=== PATIENT | female | born 1990 | race Caucasian/White ===

== ENCOUNTER 2016-04-19 09:28 | Emergency (ER) | payer BC ==
[~2016-04-19] VITALS: Ht 177.8 cm; Wt 118.3 kg
[~2016-04-19 09:28] MED LIST: ALBU18002; ASPI81TA28 PO; BENZ100C6 PO; BUTA1CAP20; FOLI1TAB7 PO; INDO-22 PO; THY/30 PO; VITB2100; vit D
[2016-04-19 09:32] VITALS: TEMP 36.5; Ht 177.8 cm; Wt 118.3 kg
[2016-04-19] MEDS ORDERED: CHOL400T PO (09:51)
[2016-04-19] MEDS ORDERED: ESTRADIOL 2MG PO (09:55)
[2016-04-19] MEDS ORDERED: KETOROLAC TROMETHAMINE 30 MG/ML VIAL IV STA (10:49)
[2016-04-19 11:13] LABS: BASO % 0.3 %; BASO ABS # 0.02 K/uL (0-0.2); COMPLETE YES; HEMATOCRIT 39.5 % (37-47); IG% 0.2 %; LYMPH % 36.1 %; LYMPH ABS # 2.15 K/uL (1.2-3.4); MEAN CELL VOLUME 82.6 fL (80-100); MEAN CORPUSCULAR HEMOGLOBIN 27.2 pg (25-34); MEAN CORPUSCULAR HGB CONC 32.9 g/dl (32-36); MEAN PLATELET VOLUME 9.5 fL (7.4-10.4); MONO % 6.7 %; NEUT % 54.7 %; PLATELET COUNT 257 K/uL (130-400); RED BLOOD COUNT 4.78 M/uL (4.2-5.4); WHITE BLOOD COUNT 5.95 K/uL (4.8-10.8)
[2016-04-19 11:19] LABS: PARTIAL THROMBOPLASTIN RATIO 1.1; PROTHROMBIN TIME (PATIENT) 11.2 SECONDS (9.0-12.0)
[2016-04-19 11:28] LABS: BUN/CREATININE RATIO 8.9 (10-20); CALCIUM 9.1 mg/dl (8.5-10.1); CREATININE 0.82 mg/dl (0.60-1.20); POTASSIUM 3.7 mmol/L (3.5-5.1)
[2016-04-19 11:31] LABS: ALB/GLOB RATIO 1.1 (0.9-2)
--- NOTE | 2016-04-19 11:48 | DIAGNOSTIC IMAGING REPORT ---
PELVIS 1 OR 2 VIEW ROUTINE CLINICAL HISTORY: Fall. Right hip and thigh pain. COMPARISON STUDY: No previous studies for comparison. FINDINGS: The sacroiliac joints and symphysis pubis are intact. There is apparent sclerosis along the left sacroiliac joint with mild osteophytosis. No acute fracture within the pelvis or hips is identified. IMPRESSION: No acute fracture within the pelvis or hips. Electronically signed by: Nathan Phillips M.D. 04/19/2016 11:46 AM Dictated Date/Time: 04/19/2016 11:45 AM
--- NOTE | 2016-04-19 11:49 | DIAGNOSTIC IMAGING REPORT ---
RIGHT FEMUR 2 VIEWS ROUTINE CLINICAL HISTORY: Right thigh pain following fall. COMPARISON: None FINDINGS: Alignment of the right hip and right knee is anatomic. No acute fracture of the right femur is identified. IMPRESSION: No acute fracture of the right femur. Electronically signed by: Nathan Phillips M.D. 04/19/2016 11:47 AM Dictated Date/Time: 04/19/2016 11:47 AM
--- NOTE | 2016-04-19 12:43 | DIAGNOSTIC IMAGING REPORT ---
ULTRASOUND RIGHT LOWER EXTREMITY VENOUS CLINICAL HISTORY: Right thigh pain. COMPARISON STUDY: No priors. TECHNIQUE: Real-time, grayscale, and color Doppler sonography of the deep veins of the right lower extremity was performed from the inguinal crease to the calf. Compression and augmentation were utilized. FINDINGS: There is no sonographic evidence of deep venous thrombosis identified in the right lower extremity. The common femoral, superficial femoral, and popliteal veins are patent and normally compressible. The greater saphenous vein and the profunda femoris vein at the junction with the common femoral vein are clear. The visualized calf veins are patent. No abnormality is identified at the site of interest in the thigh as identified by the patient. IMPRESSION: There is no sonographic evidence of deep venous thrombosis identified in the right lower extremity. Electronically signed by: Ej Fitzpatrick M.D. 04/19/2016 12:41 PM Dictated Date/Time: 04/19/2016 12:40 PM
[2016-04-19 12:44] LABS: PREG INTERNAL NEGATIVE QC NEG CLEAR BACKGROUND; PREG INTERNAL POSITIVE QC POS CONTROL LINE
--- NOTE | 2016-04-19 13:13 | EMERGENCY ROOM VISIT NOTE ---
ED Visit Note First contact with patient: 10:18 CHIEF COMPLAINT: Right thigh pain acutely this morning HISTORY OF PRESENT ILLNESS: Patient is a 25-year-old white female who presents to the emergency department for evaluation of right thigh pain that began acutely today. She states that it woke her from sleep around 6:30 this morning. She describes a burning pain in the right thigh, that does not radiate to the buttock or the lower leg. She states that she was "screaming in pain." She states that it has subsided slightly now, and was rated an 8/10. She states that it made it difficult for her to walk. She applied heat, but did not take any medications. She does report a history of migraines, trigeminal neuralgia and peripheral neuropathy. She has had problems with numbness in her arms and legs since she was 16. She has been evaluated in the past, with CT scans, MRIs and EMGs. She actually reports that she is scheduled for new upper and lower extremity EMGs she believes next week. She denies any low back pain. No bowel or bladder incontinence or urinary symptoms. She reports that she slipped on ice and fell 3 days ago, but landed on her left side and did not relate any injuries regarding the fall. The patient does report she is on estrogen for infertility. She denies any leg swelling. She does not have any symptoms in the left leg. She denies any chest pain, palpitations or shortness of breath. She has not taken any estrogen for about 5 days since she started her menstrual cycle. She does have a history of hypothyroidism. She states that it was checked about 3 months ago and was normal, but they did change her medications slightly. She is scheduled to have them rechecked. She denies any associated headache. No difficulty with balance , speech or coordination. No facial droop or numbness. REVIEW OF SYSTEMS: Review of systems as per HPI. All other systems reviewed were negative. 10 systems reviewed.. PMH: Electronic medical records are reviewed and summarized as above/below. See Problem List. SOCIAL HISTORY: Patient lives at home. Employed. Smoker. PHYSICAL EXAM: Vital Signs: Reviewed Nurse's notes. CONSTITUTIONAL: Patient is an obese 25-year-old white female who was awake and alert and laying on her left side on the gurney sleeping when I enter the exam room. Her is at the bedside. HEENT: Normocephalic, atraumatic. Pupils equal, round, reactive to light and accommodation. EOMs intact without nystagmus. Sclera are anicteric. Tympanic membranes intact, with normal landmarks. External canals are clear. Oral and nasopharynx are clear. Mucous membranes are moist. HEART: Regular rate and rhythm without murmurs, ectopy, gallops, or rubs. LUNGS: Clear to auscultation and breath sounds equal, no wheezes, rales, or rhonchi. ABDOMEN: Soft, non-tender, no hepatosplenomegaly, or masses. EXTREMITIES: Examination of the right leg does not note any erythema, cyanosis , edema, joint tenderness or effusion. Pulses equal bilaterally. There is no evidence for trauma including ecchymosis or abrasions. There is no reproducible tenderness to palpation, including over the right greater trochanter or the groin. Knee is nontender to palpation. No joint effusion is appreciated. She has full hip, knee, foot and ankle range of motion. The calves are soft and nontender. No pitting edema. No palpable cords. No increased warmth, induration or cellulitic changes noted. There is no lymphangitic streaking. NEUROLOGICAL: Alert, oriented, and cooperative. Cranial nerves, sensation and strength grossly intact. DTRs are equal and symmetrical bilaterally in the lower extremities. EMERGENCY DEPARTMENT COURSE: The patient was seen and evaluated as above. IV access was obtained. CBC, CMP and coags were drawn. She was medicated with Toradol 30 mg IV for discomfort. X-rays of the AP pelvis and right femur were obtained and were negative for acute fracture or bony abnormality. Ultrasound of the right lower extremity was performed and was negative for DVT. The patient was reassessed. She was again sleeping on the gurney in no acute distress. Laboratory and diagnostic imaging studies were reviewed with her. Certainly given her estrogen therapy, concern for DVT was expressed, but this was negative by ultrasound. She does not have any direct trauma to that area, and x-rays are unremarkable. Skin is intact without any rashes, lesions, no evidence for cellulitis or abscess. No evidence for superficial thrombophlebitis. She does have a long-standing history of neuropathy and is under the care of neurology for this, I did discuss with her possibly her pain is related to her neuropathy. Differential diagnoses also considered included lumbar radiculopathy. She was encouraged to follow-up with her providers as she has scheduled for further care and management of her symptoms. She rated her discomfort a 0/10 at discharge. ULTRASOUND RIGHT LOWER EXTREMITY VENOUS CLINICAL HISTORY: Right thigh pain. COMPARISON STUDY: No priors. TECHNIQUE: Real-time, grayscale, and color Doppler sonography of the deep veins of the right lower extremity was performed from the inguinal crease to the calf. Compression and augmentation were utilized. FINDINGS: There is no sonographic evidence of deep venous thrombosis identified in the right lower extremity. The common femoral, superficial femoral, and popliteal veins are patent and normally compressible. The greater saphenous vein and the profunda femoris vein at the junction with the common femoral vein are clear. The visualized calf veins are patent. No abnormality is identified at the site of interest in the thigh as identified by the patient. IMPRESSION: There is no sonographic evidence of deep venous thrombosis identified in the right lower extremity. PELVIS 1 OR 2 VIEW ROUTINE CLINICAL HISTORY: Fall. Right hip and thigh pain. COMPARISON STUDY: No previous studies for comparison. FINDINGS: The sacroiliac joints and symphysis pubis are intact. There is apparent sclerosis along the left sacroiliac joint with mild osteophytosis. No acute fracture within the pelvis or hips is identified. IMPRESSION: No acute fracture within the pelvis or hips. RIGHT FEMUR 2 VIEWS ROUTINE CLINICAL HISTORY: Right thigh pain following fall. COMPARISON: None FINDINGS: Alignment of the right hip and right knee is anatomic. No acute fracture of the right femur is identified. IMPRESSION: No acute fracture of the right femur. Problem List Medical Problems: (1) Asthma Status: Chronic (2) Contact dermatitis Status: Resolved (3) Hypothyroidism, Unspecified Status: Chronic (4) Migraine Status: Chronic (5) Syncope Status: Resolved (6) Trigeminal Neuralgia Status: Chronic (7) Von Willebrand disease Status: Chronic (8) Work related injury Status: Resolved Surgical Problems: (1) Hx of hand surgery Status: Resolved (2) S/P dilatation and curettage Status: Resolved (3) S/P T&A (status post tonsillectomy and adenoidectomy) Status: Resolved (4) [place] teeth extracted Status: Resolved Current/Historical Medications Scheduled Aspirin (Aspirin Ec), 81 MG PO DAILY Cholecalciferol (Vitamin D), 1 TAB PO DAILY Folic Acid (Folvite), 1 TAB PO DAILY Thyroid ([place] Thyroid), 3 TAB PO DAILY [Estradiol 2MG], 1 TAB PO BID Scheduled PRN Indomethacin (Indocin), 25 MG PO TID PRN for Migraine Miscellaneous Medications Albuterol Sulfate (Proair Respiclick) Benzonatate (Tessalon Perles), 100 MG PO Xetxgceerm-Jjtrqlshkniqe-Lmrad (Butalbital/APAP/Caffeine 50-300-40 mg) Riboflavin (Vitamin B-2) Allergies Coded Allergies: Amoxicillin (Verified Allergy, Intermediate, INTERNAL BLEEDING, 04/19/16) PT STATES SHE HAS HAD AMOXICILLIN SINCE WITHOUT PROBLEM BEE STING (Verified Allergy, Mild, HIVES, 04/19/16) Vital Signs Date Time Temp Pulse Resp B/P Pulse Ox O2 Delivery O2 Flow Rate FiO2 04/19/16 13:34 82 18 122/91 97 Room Air 04/19/16 11:10 74 18 122/91 96 Room Air 04/19/16 09:32 36.5 101 18 127/80 97 Room Air Laboratory Results 04/19/16 10:59 Red Blood Count 4.78, Mean Corpuscular Volume 82.6, Mean Corpuscular Hemoglobin 27.2, Mean Corpuscular Hemoglobin Concent 32.9, Mean Platelet Volume 9.5, Neutrophils (%) (Auto) 54.7, Lymphocytes (%) (Auto) 36.1, Monocytes (%) (Auto) 6.7, Eosinophils (%) (Auto) 2.0, Basophils (%) (Auto) 0.3, Neutrophils # (Auto) 3.25, Lymphocytes # (Auto) 2.15, Monocytes # (Auto) 0.40, Eosinophils # (Auto) 0.12, Basophils # (Auto) 0.02 04/19/16 10:59 Test 04/19/16 10:54 04/19/16 10:59 Urine Test NEG (NEG) White Blood Count 5.95 K/uL (4.8-10.8) Red Blood Count 4.78 M/uL (4.2-5.4) Hemoglobin 13.0 g/dL (12.0-16.0) Hematocrit 39.5 % (37-47) Mean Corpuscular Volume 82.6 fL (80-100) Mean Corpuscular Hemoglobin 27.2 pg (25-34) Mean Corpuscular Hemoglobin Concent 32.9 g/dl (32-36) Platelet Count 257 K/uL (130-400) Mean Platelet Volume 9.5 fL (7.4-10.4) Neutrophils (%) (Auto) 54.7 % Lymphocytes (%) (Auto) 36.1 % Monocytes (%) (Auto) 6.7 % Eosinophils (%) (Auto) 2.0 % Basophils (%) (Auto) 0.3 % Neutrophils # (Auto) 3.25 K/uL (1.4-6.5) Lymphocytes # (Auto) 2.15 K/uL (1.2-3.4) Monocytes # (Auto) 0.40 K/uL (0.11-0.59) Eosinophils # (Auto) 0.12 K/uL (0-0.5) Basophils # (Auto) 0.02 K/uL (0-0.2) RDW Standard Deviation 44.5 fL (36.4-46.3) RDW Coefficient of Variation 14.6 % (11.5-14.5) Immature Granulocyte % (Auto) 0.2 % Immature Granulocyte # (Auto) 0.01 K/uL (0.00-0.02) Prothrombin Time 11.2 SECONDS (9.0-12.0) Prothromb Time International Ratio 1.0 (0.9-1.1) Activated Partial Thromboplast Time 29.2 SECONDS (21.0-31.0) Partial Thromboplastin Ratio 1.1 Anion Gap 9.0 mmol/L (3-11) Est Creatinine Clear Calc Drug Dose 147.7 ml/min Estimated GFR () 116.1 Estimated GFR (Non- 100.2 BUN/Creatinine Ratio 8.9 (10-20) Calcium Level 9.1 mg/dl (8.5-10.1) Total Bilirubin 0.4 mg/dl (0.2-1) Aspartate Amino Transf (AST/SGOT) 14 U/L (15-37) Alanine Aminotransferase (ALT/SGPT) 21 U/L (12-78) Alkaline Phosphatase 58 U/L (45-117) Total Protein 6.9 gm/dl (6.4-8.2) Albumin 3.6 gm/dl (3.4-5.0) Globulin 3.3 gm/dl (2.5-4.0) Albumin/Globulin Ratio 1.1 (0.9-2) Medications Administered Medications (Trade) Dose Ordered Sig/[place] Route Start Time Stop Time Status Last Admin Dose Admin Ketorolac Tromethamine (Toradol Inj) 30 mg NOW STAT IV 04/19/16 10:49 04/19/16 10:51 DC 04/19/16 11:07 30 MG Departure Information Impression Primary Impression: Leg pain, right Referrals Roger Schofield D.O. (PCP) Patient Instructions [facility] Additional Instructions Ibuprofen(Motrin, Advil) may be used for fever or pain. Use 600mg every six hours as needed. Take with food. Avoid using more than 2400mg in a 24 hour period. Do not use 2400mg per day for more than three consecutive days without physician direction. Prolonged inappropriate use can lead to stomach upset or ulcers. This medication can be taken if you need to drive, work, or perform activities which may be dangerous when taking narcotic pain medication. (AND/OR) Acetaminophen(Tylenol) may be used for fever or pain. Use 1000mg every six hours as needed. Avoid using more than 3000mg in a 24 hour period. This medication can be taken if you need to drive, work, or perform activities which may be dangerous when taking narcotic pain medication. Rest and elevate your injury. Continue current medications. Follow up with your primary care physician and your neurologist for recheck of your symptoms.
[2016-04-19 13:34] VITALS: BP 122/91; PULSE 82; O2SAT 97
== END 2016-04-19 14:07 | disposition home or self-care (01) ==
LOC: C.EDB 09:30
DX: M79.651 Pain in right thigh (principal); F17.200 Nicotine dependence, unspecified, uncomplicated; J45.909 Unspecified asthma, uncomplicated; E03.9 Hypothyroidism, unspecified; D68.0 Von Willebrand disease; Z79.82 Long term (current) use of aspirin